=== PATIENT | male | born 1990 | race Two or more races ===

== ENCOUNTER 2021-09-03 19:42 | Emergency (ER) | payer MEDICAID, OTHER ==
[~2021-09-03] VITALS: Ht 180.3 cm; Wt 81.6 kg
[2021-09-03 23:37] VITALS: BP 147/96
[2021-09-03] MEDS ORDERED: TETANUS-DIPTH-ACEL PERTUSSIS 0.5ML SYR Tdap IM ONE (23:45)
== END 2021-09-03 23:50 | disposition home or self-care (01) ==
LOC: ER 19:45
DX: S31.31XA Laceration without foreign body of scrotum and testes, initial encounter (principal); W26.8XXA Contact with other sharp object(s), not elsewhere classified, initial encounter; Y93.89 Activity, other specified; Y92.89 Other specified places as the place of occurrence of the external cause; Y99.8 Other external cause status
CPT/HCPCS: 90471; 90715

== ENCOUNTER 2025-10-29 11:40 | Emergency (ER) | payer MEDICAID, OTHER ==
[~2025-10-29] VITALS: Ht 172.7 cm; Wt 95.0 kg
--- NOTE | 2025-10-29 13:51 | ED.PDOC ---
Ruy. trauma (HPI) HPI Comments 35 y/o M, BIJU, presents to the ED for CC of back pain. EMS reports, patient is coming from home where he c/o back pain following working on his yard outside. Patient relays, he bent over to pick something up when he felt an "achy" pain; endorses being able to ambulate following incident however, has been unable to sit without experiencing pain. Patient states, he took OTC Tylenol however, symptoms did not improve or subside. Patient denies weakness, numbness, or tingling. No other symptoms or modifying factors are present at this time. Chief Complaint: Back Pain Time Seen by MD: 12:00 Reviewed notes: Nurses Notes, Dairy Tester Notes, Medications, Allergies Allergies: Coded Allergies: Latex (Verified Allergy, Severe, 10/29/25) Information Source: Patient, Emergency Med Personnel Mode of Arrival: EMS Severity: Moderate Timing: Hours Duration: Since onset Prehospital treatment: None Location: Back Associated signs and symtoms: None Past Medical History PAST MEDICAL HISTORY: Denies Surgical History: Denies all surgeries Family History Family History: Reviewed,noncontributory to illness, No family hx of Cancer, No family hx of DM, No family hx of Heart brittany, No family hx of HTN, No family hx ofKidney brittany, No family hx of Liver brittany, No family hx of Lung brittany, No family hx of Stroke Social History Smoker: Non-Smoker Alcohol: Denies ETOH Use Drugs: Denies Drug Use Lives In: Home Constitutional: denies: chills, diaphoresis, fatigue, fever, malaise, sweats, weakness, others EENTM: denies: blurred vision, double vision, ear bleeding, ear discharge, ear drainage, ear pain, ear ringing, eye pain, eye redness, hearing loss, mouth pain, mouth swelling, nasal discharge, nose bleeding, nose congestion, nose pain, photophobia, tearing, throat pain, throat swelling, voice changes, others Respiratory: denies: cough, hemoptysis, orthopnea, SOB at rest, shortness of breath, SOB with excertion, stridor, wheezing, others Cardiovascular: denies: chest pain, dizzy spells, diaphoresis, Dyspnea on exertion, edema, irregular heart beat, left arm pain, lightheadedness, palpitations, PND, syncope, others Gastrointestinal: denies: abdomen distended, abdominal pain, blood streaked bowels, constipated, diarrhea, dysphagia, difficulty swallowing, hematemesis, melena, nausea, poor appetite, poor fluid intake, rectal bleeding, rectal pain, vomiting, others Genitourinary: denies: burning, dysuria, flank pain, frequency, hematuria, incontinence, penile discharge, penile sore, pain, testicle pain, testicle swelling, urgency, others Neurological: denies: dizziness, fainting, headache, left sided numbness, left sided weakness, numbness, paresthesia, pre-existing deficit, right sided numbness, right sided weakness, seizure, speech problems, tingling, tremors, weakness, others Musculoskeletal: reports: back pain; denies: gout, joint pain, joint swelling, muscle pain, muscle stiffness, neck pain, others Integumetry: denies: bruises, change in color, change in hair/nails, dryness, laceration, lesions, lumps, rash, wounds, others Allergic/Immunocompromised: denies: Difficulty Healing, Frequent Infections, Hives, Itching, others Hematologic/Lymphatic: denies: anemia, blood clots, easy bleeding, easy bruising, swollen glands, others Endocrine: denies: excessive hunger, excessive sweating, excessive thirst, excessive urination, flushing, intolerance to cold, intolerance to heat, unexplained weight gain, unexplained weight loss, others Psychiatric: denies: anxiety, bipolar disorder, depression, hopeless, panic disorder, schizophrenia, sleepless, suicidal, others All Other Systems: Reviewed and Negative Physical Exam General Appearance: Mild Distress HEENT: Pharynx Normal Neck: Normal Inspection Respiratory: No Respiratory Distress Cardiovascular: No Edema Breast Exam: Deferred Gastrointestinal: No Organomegaly Genitalia: Deferred Pelvic: Deferred Rectal: Deferred Extremities: No pedal edema, Other (Positive straight leg raise on the right) Neurologic: No Motor Deficits Cerebellar Function: NOT DONE Reflexes: NOT DONE Skin: Normal Color Lymphatic: NOT DONE Was a procedure done? Was a procedure done?: No Differential Diagnosis Multiple Trauma: Fractures, Spine Injury X-Ray, Labs, Meds, VS Vital Signs Date Time Temp Pulse Resp B/P (MAP) Pulse Ox O2 Delivery O2 Flow Rate FiO2 10/29/25 17:18 98.1 76 16 105/71 (82) 96 98.1 10/29/25 16:35 98.1 10/29/25 16:00 70 10/29/25 15:34 97.7 10/29/25 15:06 72 18 115/77 (90) 95 10/29/25 12:57 97 16 128/87 (101) 98 10/29/25 12:00 84 10/29/25 11:47 98.6 89 16 120/68 (85) 98 98.6 10/29/25 11:41 98.6 89 16 120/68 98 98.6 Current Medications Medications (Trade) Dose Ordered Sig/Malu Route Start Time Stop Time Status Last Admin Acetaminophen (Tylenol Tablet) 650 mg ONCE ONCE PO 10/29/25 15:00 10/29/25 15:01 DC 10/29/25 15:34 Cyclobenzaprine HCl (Flexeril Tablet) 5 mg ONCE ONCE PO 10/29/25 15:00 10/29/25 15:01 DC 10/29/25 15:34 Lidocaine (Lidoderm 5% Topical Patch) 1 patch ONCE ONCE TOP 10/29/25 15:00 10/29/25 15:01 DC 10/29/25 15:34 Ketorolac Tromethamine (Toradol Injection) 15 mg ONCE ONCE IM 10/29/25 15:15 10/29/25 15:16 DC 10/29/25 15:37 [place] [address] Ph: [phone] DIAGNOSTIC IMAGING Diagnostic Imaging Report : [id number] Signed PATIENT: RADHA NEVAREZACCT: [id number] UNIT: [id number] : 1990 LOC: ER ROOM / BED: / AGE / SEX: 35 / M ADM STATUS: REG ER SERVICE [id number] ORDERING PHYSICIAN: CARTER DAWN MD PROCEDURE(s): LUMB2 - LUMBAR SPINE 3 VIEW REASON: lower back pain ORDER NUMBER(s): [id number], ACCESSION NUMBER(s): [id number] CLINICAL INDICATION: lower back pain TECHNIQUE: 3 radiographic views of the lumbar spine were obtained. COMPARISON: None FINDINGS/IMPRESSION: Normal bony alignment. No compressed vertebra. ATED BY: SETH ALMENDAREZ Jr., DO DICTATED DATE/TIME: 10/29/251611 SIGNED BY: SETH ALMENDAREZ Jr., SIGNED DATE/TIME: 10/29/251611 CC: Time of 1ST Reevaluation: 12:30 Reevaluation 1ST: Unchanged Patient Education/Counseling: Diagnosis, Treatment Family Education/Counseling: No Family Present Departure 1 Departure Time of Disposition: 17:47 (Patient with lumbar radiculopathy concerning for sciatica. We will discharge patient home with outpatient follow up. Patient with a positive straight leg raise) Impression: Primary Impression: Sciatica Disposition: 01 HOME / SELF CARE / HOMELESS Condition: Stable Additional Instructions: You have sciatica. This is irritation of the nerve in your lower back. For pain you can take the followinam: Ibuprofen 400mg with food Noon: Acetaminophen 1000mg 4pm: Ibuprofen 400mg with food 8pm: Acetaminophen 1000mg You were prescribed muscle relaxers. Please take as directed. You should follow up with your regular doctor within one week to ensure you are doing better. If your symptoms worsen or you have any other concerns then please return to the ER. e-Prescriptions Cyclobenzaprine Hcl (Cyclobenzaprine Hcl) 10 Mg Tab 10 MG PO TID PRN for 7 Days, #21 TAB Prov: CARTER DAWN MD 10/29/25 Discharged With: Self Critical Care Note Critical Care Time?: No Stability Stability form required: No Heart Score Heart Score: Heart Score Response (Comments) Value History N/A 0 EKG N/A 0 Age N/A 0 Risk Factors N/A 0 Troponin N/A 0 Total 0 I personally scribed for CARTER DAWN MD ([email or web address]) on 10/29/25 at 13:51. Electronically submitted by Clemencia Cruz ([employer]). I personally scribed for CARTER DAWN MD ([email or web address]) on 10/29/25 at 13:53. Electronically submitted by Clemencia Cruz ([employer]). I personally scribed for CARTER DAWN MD ([email or web address]) on 10/29/25 at 13:56. Electronically submitted by Clemencia Cruz ([employer]). I personally scribed for CARTER DAWN MD ([email or web address]) on 10/29/25 at 16:29. Electronically submitted by Clemencia Cruz ([email or web address]). CARTER DAWN MD Oct 29, 2025 13:51
[2025-10-29 14:20] VITALS: PULSE 90; RESP 16; O2SAT 100
[2025-10-29] MEDS ORDERED: KETOROLAC TROMETH 30 MG/ML 1ML VIAL IV ONE (15:00)
[2025-10-29] MEDS: ACETAMINOPHEN 325 MG TAB PO ONE (15:34)
[2025-10-29] MEDS: LIDOCAINE 5% TOPICAL PATCH TOP ONE (15:34)
[2025-10-29] MEDS: CYCLOBENZAPRINE HCL 10 MG TAB PO ONE (15:34)
[2025-10-29] MEDS: KETOROLAC TROMETH 30 MG/ML 1ML VIAL IM ONE (15:37)
--- NOTE | 2025-10-29 16:15 | DVH ---
CLINICAL INDICATION: lower back pain TECHNIQUE: 3 radiographic views of the lumbar spine were obtained. COMPARISON: None FINDINGS/IMPRESSION: Normal bony alignment. No compressed vertebra.
[2025-10-29 17:18] VITALS: BP 105/71; PULSE 76; RESP 16; TEMP 98.1; O2SAT 96
[2025-10-29] MEDS ORDERED: CYCL-839 PO (17:49)
== END 2025-10-29 18:25 | disposition home or self-care (01) ==
LOC: EDUNIT# 11:40 → EDBD 11:40 → ER 11:40
DX: M54.30 Sciatica, unspecified side (principal); Z91.040 Latex allergy status
CPT/HCPCS: 72100; 96372; 99284; J1885